=== PATIENT | female | born 1975 | race Hispanic/Latino ===

== ENCOUNTER 2022-12-07 21:34 | Emergency (ER) | payer OTHER ==
[~2022-12-07] VITALS: Ht 170.2 cm; Wt 84.4 kg
[2022-12-07] MEDS ORDERED: ONDANSETRON HCL INJ 2MG/ML 2ML 2 MG/ML VIAL IV STA (22:31)
[2022-12-07] MEDS ORDERED: ONDANSETRON HCL INJ 2MG/ML 2ML 2 MG/ML VIAL ONE (22:40)
[2022-12-07] MEDS ORDERED: SODIUM CHLORIDE 0.9% 1000ML 1,000 ML ONE (22:40)
[2022-12-07] MEDS ORDERED: FAMOTIDINE 20 MG/2 ML VIAL IV ONE (22:40)
[2022-12-07] MEDS ORDERED: FAMOTIDINE 20 MG/2 ML VIAL IV STA (22:45)
[2022-12-07] MEDS ORDERED: SODIUM CHLORIDE 0.9% 1000ML 1,000 ML IV SCH (22:45)
[2022-12-07 23:09] VITALS: O2SAT 100
[2022-12-07] MEDS ORDERED: ONDANSETRON ODT4 MG PO (23:54)
== END 2022-12-08 00:10 | disposition home or self-care (01) ==
LOC: FSED 21:51
DX: R11.0 Nausea (principal); R19.7 Diarrhea, unspecified; I10 Essential (primary) hypertension; E87.6 Hypokalemia
CPT/HCPCS: 80048; 80076; 81003; 85025; 99283; J2405; J7030